=== PATIENT | male | born 1955 | race Two or more races ===

== ENCOUNTER 2020-01-29 06:57 | Inpatient (IN) | payer OTHER ==
[~2020-01-29] VITALS: Ht 165.1 cm; Wt 80.0 kg
[2020-01-29] MEDS ORDERED: ACETAMINOPHEN 500 MG TABLET PO ONE (07:30)
[2020-01-29] MEDS ORDERED: ACETAMINOPHEN 500 MG TABLET ONE (07:32)
[2020-01-29 07:44] LABS: ALANINE AMINOTRANSFERASE 61 U/L (12-78); ALBUMIN 3.2 g/dL (3.4-5.0); ANION GAP 7 mmol/L (5-15); CALCIUM 8.6 mg/dL (8.5-10.1); CHLORIDE 102 mmol/L (98-107)
[2020-01-29 07:49] LABS: ALKALINE PHOSPHATASE 96 U/L (45-117); BILIRUBIN,TOTAL 0.5 mg/dL (0.2-1.0); CREATININE 2.72 mg/dL (0.7-1.3); TROPONIN I 0.213 ng/mL (0.000-0.045)
[2020-01-29 07:50] LABS: BASOPHILS % (AUTO) 1 % (0-1); EOSINOPHILS % (AUTO) 0 % (1-7); LYMPHOCYTES % (AUTO) 16 % (22-44); MD NO; MEAN CORPUSCULAR HEMOGLOBIN 29.5 pg (27.5-34.5); MEAN CORPUSCULAR HGB CONC 34.1 g/dL (33.2-36.2); MEAN PLATELET VOLUME 9.8 fL (7.4-10.4); MONOCYTES % (AUTO) 11 % (2-9); NEUTROPHILS % (AUTO) 72 % (42-75); PLATELET COUNT 140 x10^3/uL (130-400); RED BLOOD COUNT 5.22 x10^6/uL (4.38-5.82); RED CELL DISTRIBUTION WIDTH 13.3 % (9.4-14.8)
--- NOTE | 2020-01-29 08:01 | NUR ---
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 pt had bypass sx in 2016. has HTN and DM c/o "electric" chest pain since "arriving in [place]" one year ago. here today because cp feels worse than normal and having shortness of breath. denies being around anyone with covid. takes atrovastatin, amalodipine, and insulin.
[2020-01-29] MEDS ORDERED: HEPARIN 5,000 UNITS/ML, 1ML IV ONE (08:30)
[2020-01-29] MEDS ORDERED: CEFTRIAXONE PMX 1GM/50ML 50 ML IV ONE (08:30)
[2020-01-29] MEDS ORDERED: HEPARIN 5,000 UNITS/ML, 1ML IV PRN (08:30)
[2020-01-29] MEDS ORDERED: ASPIRIN 81 MG TABLET CHEW PO ONE (08:30)
[2020-01-29] MEDS ORDERED: HEPARIN 25,000 UNITS/250ML PMX 250 ML IV PRN (08:30)
[2020-01-29] MEDS ORDERED: HEPARIN 5,000 UNITS/ML, 1ML ONE (08:44)
[2020-01-29] MEDS ORDERED: HEPARIN 25,000 UNITS/250ML PMX 250 ML ONE (08:45)
[2020-01-29] MEDS ORDERED: ASPIRIN 81 MG TABLET CHEW ONE (08:45)
[2020-01-29] MEDS ORDERED: CEFTRIAXONE PMX 1GM/50ML 50 ML ONE (08:45)
[2020-01-29 09:56] LABS: D-DIMER (DIC) 0.64 ug/mlFEU (0.00-0.52); PROTIME 10.4 Seconds (9.6-11.5)
[2020-01-29] MEDS: DOXYCYCLINE 100 MG in DEXTROSE 5% 250 ML IV SCH ×2 (10:10→21:59)
[2020-01-29] MEDS: CEFTRIAXONE PMX 1GM/50ML 50 ML IV SCH (10:10)
[2020-01-29 10:18] LABS: MICROSCOPIC AUTO
--- NOTE | 2020-01-29 10:51 | NUR ---
TASK RN NOTE: CALL TO PT'S ([phone]) TO UPDATE ON PT'S TRANSFER TO THE FLOOR AND REQUEST FOR PT'S PHONE FROM . NO ANSWER AT THIS TIME. PT BELIEVED THAT WAS IN LOBBY, WHICH SHE WAS NOT. PT TRANSPORTING TO FLOOR AT THIS TIME.
[2020-01-29 11:05] VITALS: BP 121/78
[2020-01-29 11:22] VITALS: BP 148/84
[2020-01-29] MEDS ORDERED: ONDANSETRON 2MG/ML, 2ML IVPush PRN (12:30)
[2020-01-29] MEDS ORDERED: ONDANSETRON ODT 4 MG PO PRN (12:30)
[2020-01-29] MEDS ORDERED: ACETAMINOPHEN 325 MG TABLET PO PRN (12:30)
[2020-01-29] MEDS ORDERED: morphine SULFATE 10 MG/ML, 1ML IVPush PRN (12:30)
[2020-01-29] MEDS ORDERED: INSU300I3 SQ-INSULIN (12:35)
[2020-01-29] MEDS ORDERED: CLOP75TA PO (12:36)
[2020-01-29] MEDS ORDERED: ATOR40TA78 PO (12:37)
[2020-01-29] MEDS ORDERED: METF850T10 PO (12:38)
[2020-01-29] MEDS ORDERED: HYDR12.517 PO (12:38)
[2020-01-29] MEDS ORDERED: AMLO-211 PO (12:40)
[2020-01-29 13:45] LABS: BASOPHILS % (AUTO) 1 % (0-1); EOSINOPHILS % (AUTO) 0 % (1-7); LYMPHOCYTES % (AUTO) 22 % (22-44); MEAN CORPUSCULAR HEMOGLOBIN 29.1 pg (27.5-34.5); MEAN CORPUSCULAR HGB CONC 33.1 g/dL (33.2-36.2); MEAN PLATELET VOLUME 9.7 fL (7.4-10.4); MONOCYTES % (AUTO) 14 % (2-9); NEUTROPHILS % (AUTO) 64 % (42-75); PLATELET COUNT 132 x10^3/uL (130-400); RED CELL DISTRIBUTION WIDTH 13.4 % (9.4-14.8)
[2020-01-29 13:52] LABS: MD NO
[2020-01-29 13:56] LABS: TROPONIN I 0.197 ng/mL (0.000-0.045)
[2020-01-29 14:25] VITALS: BP 127/70
[2020-01-29] MEDS: SODIUM CHLORIDE 0.9% 1,000 ML IV SCH (14:38)
[2020-01-29] MEDS: ASCORBIC ACID 500 MG TABLET PO SCH (17:05)
[2020-01-29] MEDS: DEXAMETHASONE 4 MG/ML, 1ML IVPush SCH (17:05)
[2020-01-29] MEDS: INSULIN LISPRO 100 UNITS/ML, PEN SQ-INSULIN SCH ×2 (18:44→21:13)
[2020-01-29 19:21] VITALS: BP 157/82
[2020-01-29 19:28] LABS: TROPONIN I 0.209 ng/mL (0.000-0.045)
[2020-01-29] MEDS ORDERED: INSULIN GLARGINE 100 UNITS/ML, PEN SQ-INSULIN SCH (21:00)
[2020-01-29] MEDS: ATORVASTATIN 40 MG TABLET PO SCH (21:11)
[2020-01-29] MEDS ORDERED: MELATONIN 5 MG TABLET PO PRN (21:30)
[2020-01-29 21:49] LABS: RAPID INFLUENZA A Negative (Negative); RAPID INFLUENZA B Negative (Negative)
[2020-01-30 00:50] VITALS: BP 127/71
[2020-01-30] MEDS: SODIUM CHLORIDE 0.9% 1,000 ML IV SCH ×2 (00:51→11:13)
[2020-01-30 05:56] LABS: ALBUMIN 2.5 g/dL (3.4-5.0); ANION GAP 7 mmol/L (5-15); CALCIUM 7.8 mg/dL (8.5-10.1); CHLORIDE 105 mmol/L (98-107)
[2020-01-30 06:09] LABS: ALANINE AMINOTRANSFERASE 44 U/L (12-78); ALKALINE PHOSPHATASE 76 U/L (45-117); BILIRUBIN,TOTAL 0.4 mg/dL (0.2-1.0); CHOL/HDL RATIO 2.8; CHOLESTEROL, TOTAL 92 mg/dL (140-239); CREATININE 2.26 mg/dL (0.7-1.3); HDL CHOL % 36 % (26-37); HDL CHOLESTEROL (DIRECT) 33 mg/dL (40-60); LDL CHOLESTEROL,CALCULATED 47 mg/dL (54-169); LDL/HDL RATIO 1.4 (0.5-3.0); TOTAL PROTEIN 6.6 g/dL (6.4-8.2); TRIGLYCERIDES 58 mg/dL (50-200); VLDL CHOLESTEROL 12 mg/dL (0-25)
[2020-01-30 07:24] VITALS: BP 132/79
[2020-01-30] MEDS: DEXAMETHASONE 4 MG/ML, 1ML IVPush SCH (09:50)
[2020-01-30] MEDS: CEFTRIAXONE PMX 1GM/50ML 50 ML IV SCH (09:50)
[2020-01-30] MEDS: ASCORBIC ACID 500 MG TABLET PO SCH ×2 (09:50→16:28)
[2020-01-30] MEDS: THIAMINE 100MG TABLET PO SCH (09:50)
[2020-01-30] MEDS: CLOPIDOGREL 75 MG TABLET PO SCH (09:50)
[2020-01-30] MEDS: ZINC SULFATE 220 MG CAPSULE PO SCH (09:50)
[2020-01-30] MEDS: AMLODIPINE 10 MG TAB PO SCH (09:50)
[2020-01-30] MEDS: INSULIN LISPRO 100 UNITS/ML, PEN SQ-INSULIN SCH ×4 (09:51→21:22)
[2020-01-30] MEDS: CHOLECALCIFEROL 5,000u TAB PO SCH (09:51)
[2020-01-30] MEDS: DOXYCYCLINE 100 MG in DEXTROSE 5% 250 ML IV SCH ×2 (11:13→23:47)
[2020-01-30 12:02] VITALS: BP 136/80
[2020-01-30] MEDS ORDERED: PHARMACY MAY ADJ FOR RENAL FX MC PRN (15:30)
[2020-01-30] MEDS: HEPARIN 5,000 UNITS/ML, 1ML SQ SCH (16:28)
[2020-01-30 20:45] VITALS: BP 158/81
[2020-01-30] MEDS: ATORVASTATIN 40 MG TABLET PO SCH (21:16)
[2020-01-30] MEDS: INSULIN GLARGINE 100 UNITS/ML, PEN SQ-INSULIN SCH (21:22)
[2020-01-31 00:28] VITALS: BP 123/69
[2020-01-31] MEDS: SODIUM CHLORIDE 0.9% 1,000 ML IV SCH (00:30)
[2020-01-31] MEDS: HEPARIN 5,000 UNITS/ML, 1ML SQ SCH ×2 (00:31→08:27)
[2020-01-31 00:57] VITALS: BP 120/71
[2020-01-31 05:44] LABS: BASOPHILS % (AUTO) 0 % (0-1); EOSINOPHILS % (AUTO) 0 % (1-7); LYMPHOCYTES % (AUTO) 10 % (22-44); MEAN CORPUSCULAR HGB CONC 32.9 g/dL (33.2-36.2); MEAN PLATELET VOLUME 10.5 fL (7.4-10.4); MONOCYTES % (AUTO) 9 % (2-9); NEUTROPHILS % (AUTO) 80 % (42-75); PLATELET COUNT 154 x10^3/uL (130-400); RED BLOOD COUNT 4.69 x10^6/uL (4.38-5.82); RED CELL DISTRIBUTION WIDTH 13.2 % (9.4-14.8)
[2020-01-31 05:55] LABS: CHLORIDE 109 mmol/L (98-107)
[2020-01-31 06:00] LABS: ANION GAP 8 mmol/L (5-15); CREATININE 2.04 mg/dL (0.7-1.3)
[2020-01-31 06:01] LABS: MD NO
[2020-01-31] MEDS: INSULIN LISPRO 100 UNITS/ML, PEN SQ-INSULIN SCH (07:00)
[2020-01-31 07:57] VITALS: BP 127/77
[2020-01-31] MEDS: INSULIN GLARGINE 100 UNITS/ML, PEN SQ-INSULIN SCH (08:26)
[2020-01-31] MEDS: DEXAMETHASONE 4 MG/ML, 1ML IVPush SCH (08:27)
[2020-01-31] MEDS: THIAMINE 100MG TABLET PO SCH (08:28)
[2020-01-31] MEDS: CHOLECALCIFEROL 5,000u TAB PO SCH (08:28)
[2020-01-31] MEDS: ZINC SULFATE 220 MG CAPSULE PO SCH (08:28)
[2020-01-31] MEDS: ASCORBIC ACID 500 MG TABLET PO SCH (08:28)
[2020-01-31] MEDS: CLOPIDOGREL 75 MG TABLET PO SCH (08:28)
[2020-01-31] MEDS: AMLODIPINE 10 MG TAB PO SCH (08:28)
[2020-01-31] MEDS ORDERED: ZINC220C7 PO (09:01)
[2020-01-31] MEDS ORDERED: ASCO500T9 PO (09:01)
[2020-01-31] MEDS ORDERED: CHOL500045 PO (09:01)
[2020-01-31] MEDS ORDERED: PRED20TA PO (09:01)
[2020-01-31] MEDS ORDERED: INSULIN LISPRO 100 UNITS/ML, PEN SQ-INSULIN SCH (11:00)
== END 2020-01-31 11:28 | disposition home or self-care (01) | DRG 871 ==
LOC: ED 07:44 → EDIP 09:10 → 4EST 11:01
PROVIDERS: ADMIT Internal Medicine; ATTEND Family Medicine
DX: A41.89 Other specified sepsis (principal); U07.1 COVID-19; J12.89 Other viral pneumonia; I21.4 Non-ST elevation (NSTEMI) myocardial infarction; N17.0 Acute kidney failure with tubular necrosis; E87.1 Hypo-osmolality and hyponatremia; I13.0 Hypertensive heart and chronic kidney disease with heart failure and stage 1 through stage 4 chronic kidney disease, or unspecified chronic kidney disease; I50.30 Unspecified diastolic (congestive) heart failure; E11.22 Type 2 diabetes mellitus with diabetic chronic kidney disease; E78.5 Hyperlipidemia, unspecified; G89.29 Other chronic pain; I25.10 Atherosclerotic heart disease of native coronary artery without angina pectoris; N18.9 Chronic kidney disease, unspecified; Z79.4 Long term (current) use of insulin; Z95.1 Presence of aortocoronary bypass graft; Z79.899 Other long term (current) drug therapy
CPT/HCPCS: 36415; 71045; 76770; 78580; 80048; 80053; 80061; 81001; 82570; 82728; 82962; 83036; 83605; 83615; 83880; 84145; 84443; 84484; 85025; 85049; 85379; 85384; 85520; 85610; 85730; 87040; 87400; 93005; 93306; 93970; 96374; 96375; G0378; J0696; J1100; J1644; J7060; A9540; C9898; J1815; J7030; U0003

== ENCOUNTER 2020-02-03 07:33 | Inpatient (IN) | payer SELFPAY ==
[~2020-02-03] VITALS: Ht 165.1 cm; Wt 76.9 kg
[~2020-02-03 07:33] MED LIST: AMLO-211 PO; ASCO500T9 PO; ATOR40TA78 PO; CHOL500045 PO; CLOP75TA PO; HYDR12.517 PO; INSU300I3 SQ-INSULIN; METF850T10 PO; PRED20TA PO; ZINC220C7 PO
[2020-02-03 09:43] LABS: ALANINE AMINOTRANSFERASE 46 U/L (12-78); ALBUMIN 2.6 g/dL (3.4-5.0); ANION GAP 9 mmol/L (5-15); CALCIUM 8.6 mg/dL (8.5-10.1); CHLORIDE 108 mmol/L (98-107); CREATININE 2.27 mg/dL (0.7-1.3)
[2020-02-03 09:47] LABS: ALKALINE PHOSPHATASE 77 U/L (45-117); BILIRUBIN,TOTAL 0.4 mg/dL (0.2-1.0); TROPONIN I 0.097 ng/mL (0.000-0.045)
[2020-02-03 09:54] LABS: BASOPHILS % (AUTO) 0 % (0-1); EOSINOPHILS % (AUTO) 0 % (1-7); LYMPHOCYTES % (AUTO) 6 % (22-44); MEAN CORPUSCULAR HEMOGLOBIN 29.3 pg (27.5-34.5); MEAN CORPUSCULAR HGB CONC 33.3 g/dL (33.2-36.2); MONOCYTES % (AUTO) 7 % (2-9); NEUTROPHILS % (AUTO) 86 % (42-75); PLATELET COUNT 193 x10^3/uL (130-400); RED BLOOD COUNT 4.88 x10^6/uL (4.38-5.82); RED CELL DISTRIBUTION WIDTH 13.5 % (9.4-14.8)
[2020-02-03] MEDS ORDERED: SODIUM CHLORIDE 0.9% 1,000ML IVBOLUS ONE (10:00)
[2020-02-03] MEDS ORDERED: SODIUM CHLORIDE FLUSH 10ML SYR IVF ONE (10:00)
[2020-02-03 10:15] LABS: MD SCAN
--- NOTE | 2020-02-03 11:19 | NUR ---
Assisted pt to bedside urinal- pt. 02 sats dropped to 83% on nasal cannula 3 L. Placed pt on oxymask 6L- 02 sats up to 93%. 1L NS infusing.
[2020-02-03] MEDS ORDERED: DEXAMETHASONE 4 MG/ML, 1ML IVPush ONE (11:30)
[2020-02-03] MEDS ORDERED: DEXAMETHASONE 4 MG/ML, 1ML ONE ×2 (11:38→13:04)
--- NOTE | 2020-02-03 12:01 | NUR ---
HOSPITAL BED REQUESTED.
[2020-02-03] MEDS ORDERED: ONDANSETRON 2MG/ML, 2ML IVPush PRN (12:30)
[2020-02-03] MEDS ORDERED: PHARMACY MAY ADJ FOR RENAL FX MC PRN (12:30)
[2020-02-03] MEDS ORDERED: ONDANSETRON ODT 4 MG PO PRN (12:30)
[2020-02-03] MEDS ORDERED: ACETAMINOPHEN 325 MG TABLET PO PRN (12:30)
[2020-02-03] MEDS ORDERED: POLYETHYLENE GLYCOL 17 GM PACKET PO PRN (12:30)
[2020-02-03] MEDS ORDERED: SENNA/DOCUSATE TABLET PO PRN (12:30)
[2020-02-03] MEDS ORDERED: REMDESIVIR 100 MG in SODIUM CHLORIDE 0.9% 250 ML IVPB ONE (13:00)
[2020-02-03] MEDS ORDERED: ZINC SULFATE 220 MG CAPSULE ONE (13:04)
[2020-02-03] MEDS ORDERED: HEPARIN 5,000 UNITS/ML, 1ML ONE (13:04)
[2020-02-03] MEDS ORDERED: AZITHROMYCIN 250 MG TABLET ONE (13:04)
[2020-02-03] MEDS ORDERED: CHOLECALCIFEROL 5,000u TAB ONE (13:04)
[2020-02-03] MEDS ORDERED: CEFTRIAXONE PMX 1GM/50ML 50 ML ONE (13:04)
[2020-02-03] MEDS: CEFTRIAXONE PMX 1GM/50ML 50 ML IV SCH (13:11)
[2020-02-03] MEDS: CHOLECALCIFEROL 5,000u TAB PO SCH (13:11)
[2020-02-03] MEDS: ZINC SULFATE 220 MG CAPSULE PO SCH (13:12)
[2020-02-03] MEDS: DEXAMETHASONE 4 MG/ML, 1ML IVPush SCH (13:13)
[2020-02-03] MEDS: HEPARIN 5,000 UNITS/ML, 1ML SQ SCH ×2 (13:13→21:02)
[2020-02-03 13:17] LABS: C-REACTIVE PROTEIN, QUANT 6.1 mg/dL (0.02-0.49)
[2020-02-03] MEDS: AZITHROMYCIN 500 MG TABLET PO SCH (13:25)
[2020-02-03 13:56] LABS: HCT (SEDRATE) 42.8 % (39.2-51.8)
--- NOTE | 2020-02-03 15:33 | NUR ---
Report called. Remdesivir infusing.
[2020-02-03 16:08] VITALS: BP 136/77
[2020-02-03] MEDS: INSULIN LISPRO 100 UNITS/ML, PEN SQ-INSULIN SCH ×2 (17:50→21:27)
[2020-02-03 19:05] VITALS: BP 125/69
[2020-02-03] MEDS ORDERED: INSULIN GLARGINE 100 UNITS/ML, PEN SQ-INSULIN SCH (21:00)
[2020-02-03] MEDS: THIAMINE 100MG TABLET PO SCH (21:02)
[2020-02-03] MEDS: ASCORBIC ACID 500 MG TABLET PO SCH (21:02)
[2020-02-03] MEDS: MELATONIN 5 MG TABLET PO SCH (21:02)
[2020-02-03] MEDS: ATORVASTATIN 40 MG TABLET PO SCH (21:02)
[2020-02-04 00:44] VITALS: BP 125/69
[2020-02-04] MEDS: HEPARIN 5,000 UNITS/ML, 1ML SQ SCH ×3 (04:40→20:23)
[2020-02-04 06:14] VITALS: BP 118/69
[2020-02-04 08:30] LABS: BASOPHILS % (AUTO) 1 % (0-1); EOSINOPHILS % (AUTO) 0 % (1-7); LYMPHOCYTES % (AUTO) 5 % (22-44); MEAN CORPUSCULAR HEMOGLOBIN 29.1 pg (27.5-34.5); MEAN CORPUSCULAR HGB CONC 32.9 g/dL (33.2-36.2); MEAN PLATELET VOLUME 9.9 fL (7.4-10.4); MONOCYTES % (AUTO) 5 % (2-9); NEUTROPHILS % (AUTO) 89 % (42-75); PLATELET COUNT 228 x10^3/uL (130-400); RED BLOOD COUNT 4.89 x10^6/uL (4.38-5.82); RED CELL DISTRIBUTION WIDTH 13.8 % (9.4-14.8)
[2020-02-04 08:38] LABS: ALANINE AMINOTRANSFERASE 50 U/L (12-78); ALBUMIN 2.3 g/dL (3.4-5.0); ANION GAP 12 mmol/L (5-15); CALCIUM 8.7 mg/dL (8.5-10.1); CHLORIDE 113 mmol/L (98-107)
[2020-02-04 08:41] LABS: ALKALINE PHOSPHATASE 71 U/L (45-117); BILIRUBIN,TOTAL 0.4 mg/dL (0.2-1.0); TOTAL PROTEIN 7.1 g/dL (6.4-8.2)
[2020-02-04 08:53] LABS: MD SCAN
[2020-02-04] MEDS: CLOPIDOGREL 75 MG TABLET PO SCH (09:03)
[2020-02-04] MEDS: CHOLECALCIFEROL 5,000u TAB PO SCH (09:03)
[2020-02-04] MEDS: AMLODIPINE 10 MG TAB PO SCH (09:03)
[2020-02-04] MEDS: ZINC SULFATE 220 MG CAPSULE PO SCH (09:03)
[2020-02-04] MEDS: AZITHROMYCIN 500 MG TABLET PO SCH (09:03)
[2020-02-04] MEDS: DEXAMETHASONE 4 MG/ML, 1ML IVPush SCH (09:03)
[2020-02-04] MEDS: THIAMINE 100MG TABLET PO SCH ×2 (09:03→20:24)
[2020-02-04] MEDS: ASCORBIC ACID 500 MG TABLET PO SCH ×2 (09:03→20:23)
[2020-02-04] MEDS: INSULIN LISPRO 100 UNITS/ML, PEN SQ-INSULIN SCH ×4 (09:04→20:25)
[2020-02-04] MEDS: CEFTRIAXONE PMX 1GM/50ML 50 ML IV SCH (11:55)
[2020-02-04 13:18] VITALS: BP 122/62
[2020-02-04] MEDS ORDERED: REMDESIVIR 50 MG in SODIUM CHLORIDE 0.9% 250 ML IVPB SCH (14:00)
[2020-02-04 18:57] VITALS: BP 113/67
[2020-02-04] MEDS: ATORVASTATIN 40 MG TABLET PO SCH (20:24)
[2020-02-04] MEDS: MELATONIN 5 MG TABLET PO SCH (20:24)
[2020-02-04] MEDS: INSULIN GLARGINE 100 UNITS/ML, PEN SQ-INSULIN SCH (20:24)
[2020-02-05 00:22] VITALS: BP 120/72
[2020-02-05] MEDS: HEPARIN 5,000 UNITS/ML, 1ML SQ SCH ×3 (04:32→22:44)
[2020-02-05 06:27] VITALS: BP 95/55
[2020-02-05 06:48] LABS: BASOPHILS % (AUTO) 1 % (0-1); EOSINOPHILS % (AUTO) 0 % (1-7); HCT (SEDRATE) 44.5 % (39.2-51.8); LYMPHOCYTES % (AUTO) 4 % (22-44); MEAN CORPUSCULAR HEMOGLOBIN 29.2 pg (27.5-34.5); MEAN CORPUSCULAR HGB CONC 32.8 g/dL (33.2-36.2); MEAN PLATELET VOLUME 9.6 fL (7.4-10.4); MONOCYTES % (AUTO) 5 % (2-9); NEUTROPHILS % (AUTO) 90 % (42-75); PLATELET COUNT 262 x10^3/uL (130-400); RED BLOOD COUNT 5.03 x10^6/uL (4.38-5.82); RED CELL DISTRIBUTION WIDTH 13.8 % (9.4-14.8)
[2020-02-05 06:50] LABS: MD NO
[2020-02-05 06:59] LABS: ALANINE AMINOTRANSFERASE 48 U/L (12-78); ALBUMIN 2.2 g/dL (3.4-5.0); ANION GAP 10 mmol/L (5-15); CALCIUM 8.8 mg/dL (8.5-10.1); CHLORIDE 116 mmol/L (98-107); CREATININE 2.06 mg/dL (0.7-1.3)
[2020-02-05 07:06] LABS: ALKALINE PHOSPHATASE 69 U/L (45-117); BILIRUBIN,TOTAL 0.3 mg/dL (0.2-1.0); TOTAL PROTEIN 6.5 g/dL (6.4-8.2)
[2020-02-05] MEDS: INSULIN LISPRO 100 UNITS/ML, PEN SQ-INSULIN SCH ×4 (08:33→22:45)
[2020-02-05] MEDS: ZINC SULFATE 220 MG CAPSULE PO SCH (08:33)
[2020-02-05] MEDS: ASCORBIC ACID 500 MG TABLET PO SCH ×2 (08:33→22:43)
[2020-02-05] MEDS: CLOPIDOGREL 75 MG TABLET PO SCH (08:33)
[2020-02-05] MEDS: AZITHROMYCIN 500 MG TABLET PO SCH (08:33)
[2020-02-05] MEDS: AMLODIPINE 10 MG TAB PO SCH (08:33)
[2020-02-05] MEDS: DEXAMETHASONE 4 MG/ML, 1ML IVPush SCH (08:34)
[2020-02-05] MEDS: CHOLECALCIFEROL 5,000u TAB PO SCH (08:34)
[2020-02-05] MEDS: THIAMINE 100MG TABLET PO SCH ×2 (08:38→22:44)
[2020-02-05 12:04] VITALS: BP 107/67
[2020-02-05] MEDS: CEFTRIAXONE PMX 1GM/50ML 50 ML IV SCH (12:08)
[2020-02-05] MEDS: REMDESIVIR 100 MG in SODIUM CHLORIDE 0.9% 250 ML IVPB SCH (16:13)
[2020-02-05 18:53] VITALS: BP 118/67
[2020-02-05] MEDS: MELATONIN 5 MG TABLET PO SCH (22:43)
[2020-02-05] MEDS: ATORVASTATIN 40 MG TABLET PO SCH (22:44)
[2020-02-05] MEDS: INSULIN GLARGINE 100 UNITS/ML, PEN SQ-INSULIN SCH (22:46)
[2020-02-06 01:12] VITALS: BP 117/66
[2020-02-06] MEDS: HEPARIN 5,000 UNITS/ML, 1ML SQ SCH ×3 (05:55→21:18)
[2020-02-06 07:14] VITALS: BP 126/76
[2020-02-06 07:17] LABS: BASOPHILS % (AUTO) 0 % (0-1); EOSINOPHILS % (AUTO) 0 % (1-7); LYMPHOCYTES % (AUTO) 4 % (22-44); MEAN CORPUSCULAR HEMOGLOBIN 28.6 pg (27.5-34.5); MEAN PLATELET VOLUME 9.8 fL (7.4-10.4); MONOCYTES % (AUTO) 7 % (2-9); NEUTROPHILS % (AUTO) 89 % (42-75); PLATELET COUNT 290 x10^3/uL (130-400); RED BLOOD COUNT 5.09 x10^6/uL (4.38-5.82); RED CELL DISTRIBUTION WIDTH 13.7 % (9.4-14.8)
[2020-02-06 07:18] LABS: MD NO
[2020-02-06 07:27] LABS: ALBUMIN 2.3 g/dL (3.4-5.0); CALCIUM 8.6 mg/dL (8.5-10.1); CHLORIDE 116 mmol/L (98-107)
[2020-02-06 07:36] LABS: ALANINE AMINOTRANSFERASE 60 U/L (12-78); ALKALINE PHOSPHATASE 77 U/L (45-117); ANION GAP 9 mmol/L (5-15); BILIRUBIN,TOTAL 0.3 mg/dL (0.2-1.0); CREATININE 2.02 mg/dL (0.7-1.3); TOTAL PROTEIN 6.6 g/dL (6.4-8.2)
[2020-02-06] MEDS: CHOLECALCIFEROL 5,000u TAB PO SCH (09:00)
[2020-02-06] MEDS: AZITHROMYCIN 500 MG TABLET PO SCH (09:51)
[2020-02-06] MEDS: CLOPIDOGREL 75 MG TABLET PO SCH (09:51)
[2020-02-06] MEDS: ZINC SULFATE 220 MG CAPSULE PO SCH (09:51)
[2020-02-06] MEDS: AMLODIPINE 10 MG TAB PO SCH (09:52)
[2020-02-06] MEDS: THIAMINE 100MG TABLET PO SCH ×2 (09:52→21:18)
[2020-02-06] MEDS: ASCORBIC ACID 500 MG TABLET PO SCH ×2 (09:52→21:18)
[2020-02-06] MEDS: DEXAMETHASONE 4 MG/ML, 1ML IVPush SCH (09:53)
[2020-02-06] MEDS: INSULIN LISPRO 100 UNITS/ML, PEN SQ-INSULIN SCH ×4 (09:53→21:19)
[2020-02-06] MEDS: CEFTRIAXONE PMX 1GM/50ML 50 ML IV SCH (12:38)
[2020-02-06 12:57] VITALS: BP 107/66
[2020-02-06] MEDS: REMDESIVIR 100 MG in SODIUM CHLORIDE 0.9% 250 ML IVPB SCH (16:10)
[2020-02-06 19:44] VITALS: BP 127/64
[2020-02-06] MEDS: ATORVASTATIN 40 MG TABLET PO SCH (21:18)
[2020-02-06] MEDS: MELATONIN 5 MG TABLET PO SCH (21:18)
[2020-02-06] MEDS: INSULIN GLARGINE 100 UNITS/ML, PEN SQ-INSULIN SCH (21:20)
[2020-02-07 01:00] VITALS: BP 107/65
[2020-02-07] MEDS: HEPARIN 5,000 UNITS/ML, 1ML SQ SCH ×3 (05:24→22:27)
[2020-02-07 05:57] LABS: HCT (SEDRATE) 41.5 % (39.2-51.8)
[2020-02-07 06:05] LABS: CHLORIDE 113 mmol/L (98-107)
[2020-02-07 06:12] LABS: BASOPHILS % (AUTO) 0 % (0-1); EOSINOPHILS % (AUTO) 0 % (1-7); LYMPHOCYTES % (AUTO) 4 % (22-44); MEAN CORPUSCULAR HEMOGLOBIN 28.4 pg (27.5-34.5); MEAN CORPUSCULAR HGB CONC 32.4 g/dL (33.2-36.2); MEAN PLATELET VOLUME 10.1 fL (7.4-10.4); MONOCYTES % (AUTO) 6 % (2-9); NEUTROPHILS % (AUTO) 90 % (42-75); PLATELET COUNT 273 x10^3/uL (130-400); RED BLOOD COUNT 4.77 x10^6/uL (4.38-5.82); RED CELL DISTRIBUTION WIDTH 13.6 % (9.4-14.8)
[2020-02-07 06:17] LABS: ALANINE AMINOTRANSFERASE 55 U/L (12-78); ALBUMIN 2.1 g/dL (3.4-5.0); ALKALINE PHOSPHATASE 69 U/L (45-117); ANION GAP 9 mmol/L (5-15); BILIRUBIN,TOTAL 0.3 mg/dL (0.2-1.0); C-REACTIVE PROTEIN, QUANT 0.98 mg/dL (0.02-0.49)
[2020-02-07] MEDS: INSULIN LISPRO 100 UNITS/ML, PEN SQ-INSULIN SCH ×4 (07:00→21:25)
[2020-02-07 07:04] LABS: MD SCAN
[2020-02-07 08:34] VITALS: BP 115/69
[2020-02-07] MEDS: DEXAMETHASONE 4 MG/ML, 1ML IVPush SCH (09:24)
[2020-02-07] MEDS: AMLODIPINE 10 MG TAB PO SCH (09:24)
[2020-02-07] MEDS: ZINC SULFATE 220 MG CAPSULE PO SCH (09:24)
[2020-02-07] MEDS: CLOPIDOGREL 75 MG TABLET PO SCH (09:24)
[2020-02-07] MEDS: ASCORBIC ACID 500 MG TABLET PO SCH ×2 (09:24→21:24)
[2020-02-07] MEDS: AZITHROMYCIN 500 MG TABLET PO SCH (09:24)
[2020-02-07] MEDS: CHOLECALCIFEROL 5,000u TAB PO SCH (09:25)
[2020-02-07] MEDS: THIAMINE 100MG TABLET PO SCH ×2 (09:25→21:25)
[2020-02-07] MEDS: CEFTRIAXONE PMX 1GM/50ML 50 ML IV SCH (11:57)
[2020-02-07 14:31] VITALS: BP 120/63
[2020-02-07] MEDS: REMDESIVIR 100 MG in SODIUM CHLORIDE 0.9% 250 ML IVPB SCH (16:15)
[2020-02-07 19:02] VITALS: BP 134/77
[2020-02-07] MEDS: MELATONIN 5 MG TABLET PO SCH (21:24)
[2020-02-07] MEDS: ATORVASTATIN 40 MG TABLET PO SCH (21:24)
[2020-02-07] MEDS: INSULIN GLARGINE 100 UNITS/ML, PEN SQ-INSULIN SCH (21:26)
[2020-02-08 01:51] VITALS: BP 116/61
[2020-02-08] MEDS: HEPARIN 5,000 UNITS/ML, 1ML SQ SCH ×3 (05:52→22:30)
[2020-02-08 06:40] LABS: ALANINE AMINOTRANSFERASE 55 U/L (12-78); ALBUMIN 1.9 g/dL (3.4-5.0); ANION GAP 8 mmol/L (5-15); CALCIUM 8.2 mg/dL (8.5-10.1); CHLORIDE 116 mmol/L (98-107)
[2020-02-08 06:47] VITALS: BP 120/72
[2020-02-08 06:51] LABS: ALKALINE PHOSPHATASE 73 U/L (45-117); BILIRUBIN,TOTAL 0.3 mg/dL (0.2-1.0); TOTAL PROTEIN 6.1 g/dL (6.4-8.2)
[2020-02-08 07:27] LABS: MEAN CORPUSCULAR HEMOGLOBIN 29.1 pg (27.5-34.5); MEAN CORPUSCULAR HGB CONC 33.1 g/dL (33.2-36.2); PLATELET COUNT 282 x10^3/uL (130-400); RED BLOOD COUNT 4.81 x10^6/uL (4.38-5.82); RED CELL DISTRIBUTION WIDTH 13.4 % (9.4-14.8)
[2020-02-08 08:16] LABS: MD YES
[2020-02-08 08:18] LABS: <PLATELET ESTIMATE> ADEQUATE; <PLT MORPHOLOGY> NORMAL PLT MORPH; <RBC MORPHOLOGY> NORMAL; BAND#(MANUAL) 0.21 x10^3/uL; BANDS%(MANUAL) 1 % (0-7); LYMPH#(MANUAL) 1.07 x10^3/uL (1-3.4); LYMPHS% (MANUAL) 5 % (22-44); METAMYELOCYTES# (MANUAL) 0.21 x10^3/uL (0-0); METAMYELOCYTES% (MANUAL) 1 % (0-1); MONOS#(MANUAL) 0.64 x10^3/uL (0.3-2.7); MONOS% (MANUAL) 3 % (2-9); SEG#(MANUAL) 19.17 x10^3/uL (1.8-6.8); SEGS% (MANUAL) 90 % (42-75)
[2020-02-08] MEDS: INSULIN LISPRO 100 UNITS/ML, PEN SQ-INSULIN SCH ×4 (08:48→20:20)
[2020-02-08] MEDS: CHOLECALCIFEROL 5,000u TAB PO SCH (08:49)
[2020-02-08] MEDS: THIAMINE 100MG TABLET PO SCH ×2 (08:49→20:18)
[2020-02-08] MEDS: CLOPIDOGREL 75 MG TABLET PO SCH (08:49)
[2020-02-08] MEDS: ZINC SULFATE 220 MG CAPSULE PO SCH (08:49)
[2020-02-08] MEDS: DEXAMETHASONE 4 MG/ML, 1ML IVPush SCH (08:49)
[2020-02-08] MEDS: AZITHROMYCIN 500 MG TABLET PO SCH (08:49)
[2020-02-08] MEDS: AMLODIPINE 10 MG TAB PO SCH (08:49)
[2020-02-08] MEDS: ASCORBIC ACID 500 MG TABLET PO SCH ×2 (08:49→20:18)
[2020-02-08] MEDS: CEFTRIAXONE PMX 1GM/50ML 50 ML IV SCH (11:31)
[2020-02-08 13:35] VITALS: BP 120/72
[2020-02-08 16:21] VITALS: BP 147/78
[2020-02-08 19:37] VITALS: BP 152/76
[2020-02-08] MEDS: MELATONIN 5 MG TABLET PO SCH (20:18)
[2020-02-08] MEDS: ATORVASTATIN 40 MG TABLET PO SCH (20:18)
[2020-02-08] MEDS: INSULIN GLARGINE 100 UNITS/ML, PEN SQ-INSULIN SCH (20:20)
[2020-02-09 00:36] VITALS: BP 128/72
[2020-02-09] MEDS: HEPARIN 5,000 UNITS/ML, 1ML SQ SCH ×3 (05:46→22:04)
[2020-02-09] MEDS: METFORMIN MC SCH ×3 (07:30→23:30)
[2020-02-09] MEDS: DEXAMETHASONE 4 MG/ML, 1ML IVPush SCH (07:34)
[2020-02-09] MEDS: INSULIN LISPRO 100 UNITS/ML, PEN SQ-INSULIN SCH ×4 (07:34→20:26)
[2020-02-09] MEDS: THIAMINE 100MG TABLET PO SCH ×2 (07:34→20:24)
[2020-02-09] MEDS: CHOLECALCIFEROL 5,000u TAB PO SCH (07:35)
[2020-02-09] MEDS: ZINC SULFATE 220 MG CAPSULE PO SCH (07:35)
[2020-02-09] MEDS: ASCORBIC ACID 500 MG TABLET PO SCH ×2 (07:35→20:24)
[2020-02-09] MEDS: CLOPIDOGREL 75 MG TABLET PO SCH (07:35)
[2020-02-09] MEDS: CARVEDILOL 6.25 MG TABLET PO SCH ×2 (07:44→17:14)
[2020-02-09 07:46] VITALS: BP 127/75
[2020-02-09] MEDS ORDERED: metFORMIN 850 MG TABLET PO SCH (09:00)
[2020-02-09] MEDS: CEFTRIAXONE PMX 1GM/50ML 50 ML IV SCH (11:48)
[2020-02-09 13:12] VITALS: BP 146/74
[2020-02-09 18:24] VITALS: BP 167/74
[2020-02-09] MEDS: ATORVASTATIN 40 MG TABLET PO SCH (20:24)
[2020-02-09] MEDS: MELATONIN 5 MG TABLET PO SCH (20:24)
[2020-02-09] MEDS ORDERED: INSULIN GLARGINE 100 UNITS/ML, PEN SQ-INSULIN SCH (21:00)
[2020-02-10 00:42] VITALS: BP 156/79
[2020-02-10 05:40] VITALS: BP 134/78
[2020-02-10] MEDS: HEPARIN 5,000 UNITS/ML, 1ML SQ SCH ×2 (05:44→11:14)
[2020-02-10] MEDS: CARVEDILOL 6.25 MG TABLET PO SCH (05:53)
[2020-02-10 06:55] VITALS: BP 149/55
[2020-02-10] MEDS: METFORMIN MC SCH ×2 (07:16→11:14)
[2020-02-10] MEDS: INSULIN LISPRO 100 UNITS/ML, PEN SQ-INSULIN SCH ×2 (08:49→11:13)
[2020-02-10] MEDS: THIAMINE 100MG TABLET PO SCH (08:49)
[2020-02-10] MEDS: CHOLECALCIFEROL 5,000u TAB PO SCH (08:50)
[2020-02-10] MEDS: ASCORBIC ACID 500 MG TABLET PO SCH (08:50)
[2020-02-10] MEDS: ZINC SULFATE 220 MG CAPSULE PO SCH (08:50)
[2020-02-10] MEDS: CLOPIDOGREL 75 MG TABLET PO SCH (08:50)
[2020-02-10] MEDS ORDERED: HYDROCHLOROTHIAZIDE 12.5 MG CAPSULE PO SCH (09:00)
[2020-02-10] MEDS ORDERED: ASCO500T9 PO (12:08)
[2020-02-10] MEDS ORDERED: ZINC220C7 PO (12:08)
[2020-02-10] MEDS ORDERED: CHOL500045 PO (12:08)
[2020-02-10 12:29] VITALS: BP 118/67
== END 2020-02-10 15:25 | disposition home or self-care (01) | DRG 871 ==
LOC: ED 10:07 → EDIP 10:54 → 4WST 15:55 → 3N 02-08 16:05
PROVIDERS: ADMIT Internal Medicine; ATTEND Hospitalist
PROC: XW033E5 Introduction of Remdesivir Anti-infective into Peripheral Vein, Percutaneous Approach, New Technology Group 5 (ICD-10-PCS; principal; 2020-02-04)
DX: A41.89 Other specified sepsis (principal); E43 Unspecified severe protein-calorie malnutrition; J12.89 Other viral pneumonia; J96.01 Acute respiratory failure with hypoxia; U07.1 COVID-19; I13.0 Hypertensive heart and chronic kidney disease with heart failure and stage 1 through stage 4 chronic kidney disease, or unspecified chronic kidney disease; I50.32 Chronic diastolic (congestive) heart failure; N17.9 Acute kidney failure, unspecified; E11.22 Type 2 diabetes mellitus with diabetic chronic kidney disease; E78.5 Hyperlipidemia, unspecified; I25.10 Atherosclerotic heart disease of native coronary artery without angina pectoris; I25.2 Old myocardial infarction; N18.9 Chronic kidney disease, unspecified; Z95.1 Presence of aortocoronary bypass graft
CPT/HCPCS: 36415; 71045; 80053; 82728; 82962; 83615; 83880; 84145; 84484; 85025; 85379; 85651; 86140; 93005; 96372; 96374; 99285; G0378; J0696; J1100; J1644; J1815; J7030; J7050

== ENCOUNTER 2020-02-26 15:19 | Emergency (ER) | payer SELFPAY ==
[~2020-02-26] VITALS: Ht 165.1 cm; Wt 76.0 kg
--- NOTE | 2020-02-26 17:51 | NUR ---
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
[2020-02-26 18:40] LABS: ALBUMIN 3.2 g/dL (3.4-5.0); ANION GAP 8 mmol/L (5-15); CALCIUM 9.1 mg/dL (8.5-10.1); CHLORIDE 103 mmol/L (98-107); CREATININE 1.78 mg/dL (0.7-1.3)
[2020-02-26 18:52] LABS: BASOPHILS % (AUTO) 1 % (0-1); EOSINOPHILS % (AUTO) 5 % (1-7); LYMPHOCYTES % (AUTO) 18 % (22-44); MEAN CORPUSCULAR HEMOGLOBIN 29.6 pg (27.5-34.5); MEAN CORPUSCULAR HGB CONC 34.3 g/dL (33.2-36.2); MEAN PLATELET VOLUME 8.4 fL (7.4-10.4); MONOCYTES % (AUTO) 9 % (2-9); NEUTROPHILS % (AUTO) 68 % (42-75); PLATELET COUNT 297 x10^3/uL (130-400); RED BLOOD COUNT 5.13 x10^6/uL (4.38-5.82); RED CELL DISTRIBUTION WIDTH 14.3 % (9.4-14.8)
[2020-02-26 18:54] LABS: MD NO
--- NOTE | 2020-02-26 18:55 | NUR ---
WEANED TO ROOM AIR- 94% CXR AT BEDSIDE REPORT TO JESSENIA GARCIA
--- NOTE | 2020-02-26 19:10 | NUR ---
REPORT RECIEVED FROM SAMANTHA GARCIA
--- NOTE | 2020-02-26 19:35 | NUR ---
PT AMBULATING ON RA, 92-94%
--- NOTE | 2020-02-26 19:40 | NUR ---
UPON RETURNING TO BED OXYGEN SATURATION DROPPED TO 85% BUT INCREASED TO 91% AFTER REST. ERP AWARE
[2020-02-26] MEDS ORDERED: ALBUTEROL/IPRATROPIUM 2.5MG/0.5MG, 3 ML ONE (19:48)
[2020-02-26] MEDS ORDERED: ALBUTEROL/IPRATROPIUM 2.5MG/0.5MG, 3 ML NPPB ONE (20:00)
[2020-02-26 20:27] VITALS: BP 172/68
== END 2020-02-26 20:29 | disposition home or self-care (01) ==
LOC: ED 18:30
DX: B34.9 Viral infection, unspecified (principal); Z20.822 Contact with and (suspected) exposure to COVID-19; R94.31 Abnormal electrocardiogram [ECG] [EKG]
CPT/HCPCS: 36415; 71045; 80048; 82040; 85025; 87635; 93005; 94640; 99285